=== PATIENT | male | born 1945 | race Caucasian/White ===

== ENCOUNTER → 2018-10-07 | Outpatient (CLI) | payer OTHER | END | disposition home or self-care (01) | LOC: PCVCCLINIC 12:08 | PROVIDERS: ATTEND Internal Medicine Cardiovascular Disease | DX: I25.10 Atherosclerotic heart disease of native coronary artery without angina pectoris (principal); I10 Essential (primary) hypertension; E78.00 Pure hypercholesterolemia, unspecified; R06.02 Shortness of breath; I65.23 Occlusion and stenosis of bilateral carotid arteries; Z87.891 Personal history of nicotine dependence; Z79.82 Long term (current) use of aspirin | CPT/HCPCS: 36415; 80061; 93005; G0463 ==

== ENCOUNTER → 2018-10-14 | Outpatient (CLI) | payer OTHER ==
--- NOTE | 2018-10-14 10:18 | PCVCIMAG ---
APPROVED REPORT Indications Stenosis Doppler Spectral Velocity Analysis PSV / EDVPSV / EDV ECA (R) 89 / 15 cm/sECA (L) 64 / 9 cm/s dICA (R) 45 / 14 cm/sdICA (L) 76 / 33 cm/s Gustavo (R) 67 / 23 cm/smICA (L) 56 / 19 cm/s pICA (R) 46 / 10 cm/spICA (L) 97 / 29 cm/s Bulb (R) 51 / 11 cm/sBulb (L) 71 / 18 cm/s dCCA (R) 86 / 17 cm/sdCCA (L) 69 / 18 cm/s mCCA (R) 80 / 17 cm/smCCA (L) 89 / 23 cm/s Vert (R) 39 / 10 cm/sVert (L) 32 / 8 cm/s ICA/CCA 0.78ICA/CCA 1.41 Findings The right carotid bulb has mild calcified plaque. The right proximal internal carotid artery shows no significant stenosis. The right common carotid artery shows no significant stenosis. The right external carotid artery shows no significant stenosis. The left carotid bulb has mild calcified plaque. The left proximal internal carotid artery shows no significant stenosis. The left common carotid artery shows no significant stenosis. The left external carotid artery shows no significant stenosis. Conclusion 1. Mild bilateral calcific plaquing without significant stenosis. 2. Antegrade vertebral flow
== END | disposition home or self-care (01) ==
LOC: PCVCIMAG 09:23
PROVIDERS: ATTEND Internal Medicine
DX: I65.23 Occlusion and stenosis of bilateral carotid arteries (principal)
CPT/HCPCS: 93880

== ENCOUNTER → 2018-10-19 | Outpatient (CLI) | payer OTHER ==
--- NOTE | 2018-10-19 11:55 | PCVCIMAG ---
APPROVED REPORT Study performed: 10/19/2018 11:11:13 Exam: Stress Echocardiogram Indication: CAD s/p CABG, Hyperlipidemia, Hypertension Stress Nurse: Leann Ram RN Status: routine Ht: 5 ft 6 in HR: 81 bpm BP: 118/70 mmHg Rhythm: NSR Medical History Medical History: CAD s/p CABG, Lung cancer Procedure The patient underwent an Exercise Stress Test using the Lexa Protocol. Blood pressure, heart rate, and EKG were monitored. An Echocardiogram was performed by police service technician in four stages in quad fashion. At peak stress, four selected images were obtained and placed side by side with resting images for comparison. Stress Test Details Stress Test: Exercise stress testing was performed using a Lexa protocol. HR Resting HR: 81 bpmMax Heart Rate (APMHR): 149 bpm Max HR Achieved: 129 bpmTarget HR (85% APMHR): 126 bpm % of APMHR: 86 Recovery HR: 96 bpm HR response to stress: Normal HR response to stress BP Resting BP: 118/70 mmHg Max BP: 178/78 mmHg Recovery BP: 138/368 mmHg BP response to stress: Normal blood pressure response to stress. ECG Resting ECG: Sinus Rhythm Stress ECG: Sinus Rhythm Recovery ECG: Sinus Rhythm Clinical Reason for Termination: Maximal effort, Dyspnea Exercise duration: 9 min 27 sec Highest Stage Achieved: Stage 3: 3.4 mph at 14% grade. Exercise capacity: 11.50 METs Overall Exercise Capacity for Age: Good Pre-Stress Echo The resting Echocardiogram showed normal left ventricular contractility with an estimated Ejection Fraction of about 50-55%. Post-Stress Echo The stress Echocardiogram showed normal left ventricular contractility with an estimated Ejection Fraction of about >55%. Conclusion Clinical Response: Non-ischemic Exercise Capacity: Average Stress ECG Response: Non-ischemic Stress Echo Images: Non-ischemic Other Information Study Quality: Technically Difficult
== END | disposition home or self-care (01) ==
LOC: PCVCIMAG 10:51
PROVIDERS: ATTEND Internal Medicine Cardiovascular Disease
DX: I25.10 Atherosclerotic heart disease of native coronary artery without angina pectoris (principal); R06.02 Shortness of breath; E78.00 Pure hypercholesterolemia, unspecified
CPT/HCPCS: 93325; 93351